=== PATIENT | male | born 1940 | race Caucasian/White ===

== ENCOUNTER → 2018-08-16 | Day surgery (SDC) | payer OTHER ==
[2018-08-11 11:57] LABS: Calcium 8.8 mg/dL (8.5-10.1); Potassium 4.4 mmol/L (3.5-5.1)
[2018-08-11 12:00] LABS: Bilirubin, Total 0.5 mg/dL (0.2-1.0); Total Protein 7.5 g/dL (6.4-8.2)
[2018-08-11 12:02] LABS: Urine Bacteria NONE SEEN /hpf (None Seen); Urine Blood Negative /uL (Negative); Urine Specific Gravity 1.008 (1.001-1.035); Urine WBC 5 /hpf (0 - 3)
[2018-08-11 12:06] LABS: Basophils # (auto) 0 uL; Basophils % (auto) 0.7 % (0.0-2.0); Eosinophils # (auto) 0.4 uL; Eosinophils % (auto) 5.9 % (0.0-7.0); Hematocrit 47.3 % (41.0-53.0); Hemoglobin 16.3 g/dL (13.5-17.5); Lymphocytes # (auto) 2.2 uL; Lymphocytes % (auto) 33.7 % (10.0-50.0); Mean Corpuscular Hemoglobin 31.3 pg (28.0-32.0); Mean Corpuscular Hgb Conc. 34.5 g/dL (32.0-36.0); Mean Corpuscular Volume 90.8 fL (80.0-100.0); Monocytes # (auto) 0.8 uL; Monocytes % (auto) 11.7 % (0.0-12.0); Neutrophils # (auto) 3.1 uL; Nucleated Red Blood Cells % 0.1 %; Platelet Count (auto) 272 10^3/uL (140-450); White Blood Cell 6.5 10^3/uL (4.4-10.8)
[2018-08-11 12:09] LABS: INR 0.95 (0.9-1.15); Partial Thromboplastin Time 27.6 sec (23.78-33.04); Prothrombin Time 10.2 sec (9.27-12.13)
[2018-08-11 12:41] LABS: BUN/Creatinine Ratio 17.7
[~2018-08-16] VITALS: Ht 172.7 cm; Wt 98.0 kg
[~2018-08-16] MED LIST: ACCU-CHEK COMFORT CURVE STRIP VI ONE; ALLO100T PO; AMLO5TAB13 PO; ASCO500T11 PO; ASPI81TA27 PO; B-CO1TAB8 PO; CHOL20009 PO; CYAN100088 PO; DESL5TAB29 PO; ETOMIDATE (2MG/ML) 20ML VIAL IV ONE; FLUT1SPR5; GLIP-110 PO; HYDROmorphone HCL 2 MG/ML VL IV PRN; KETOROLAC TROMETH 30 MG/ML 1ML VIAL ONE; LIDOCAINE 1% INJ PF 5ML AMP ONE; LISI-706 PO; LOVA40TA72 PO; MAGN400C3 PO; METOCLOPRAMIDE HCL 5MG/ml INJ 2ml VIAL ONE; MIDAZOLAM HCL 1MG/1ML-2 ML VIAL ONE; MORPHINE SULF(PF) 0.5MG/ML 10ML VIAL ONE; NALOXONE HCL 0.4 MG/ML VIAL IV PRN; NAPR-223 PO; OMEG100078 PO; OMEP20TA PO; ONDANSETRON HCL 4 MG/2 ML VIAL IV ONE; OYST500T29 PO; PIOG15TA38 PO; POTA8TAB2 PO; ROCURONIUM 10MG/ML 10ML VIAL IV ONE; SITA50TA28 PO; SUCCINYLCHOLINE CHLORIDE 20 MG/ML 10ML VIAL IV ONE; TEMA15CA91 PO; ceFAZolin 1GM/50ML 50 ML IV ONE; fentaNYL CITRATE 100 MCG/2 ML VL ONE; methylPREDNISolone ACETATE 80 MG/ML VL ONE
[2018-08-16] MEDS: HYDROmorphone HCL 2 MG/ML VL IV PRN ×3 (09:41→10:41)
[2018-08-16 10:31] VITALS: BP 137/83
== END | disposition home or self-care (01) ==
LOC: SUR 06:03
PROVIDERS: ATTEND Orthopaedic Surgery
DX: S83.241A Other tear of medial meniscus, current injury, right knee, initial encounter (principal); D16.21 Benign neoplasm of long bones of right lower limb; M65.861 Other synovitis and tenosynovitis, right lower leg; M17.11 Unilateral primary osteoarthritis, right knee; E11.9 Type 2 diabetes mellitus without complications; G47.30 Sleep apnea, unspecified; I10 Essential (primary) hypertension; K21.9 Gastro-esophageal reflux disease without esophagitis; M19.90 Unspecified osteoarthritis, unspecified site; F41.9 Anxiety disorder, unspecified; I25.10 Atherosclerotic heart disease of native coronary artery without angina pectoris; E66.9 Obesity, unspecified; E78.5 Hyperlipidemia, unspecified; Z88.0 Allergy status to penicillin; Z98.890 Other specified postprocedural states; Z79.899 Other long term (current) drug therapy; Z88.5 Allergy status to narcotic agent; Z88.6 Allergy status to analgesic agent; Z68.33 Body mass index [BMI] 33.0-33.9, adult; X58.XXXA Exposure to other specified factors, initial encounter; Y93.89 Activity, other specified; Y92.89 Other specified places as the place of occurrence of the external cause; Y99.8 Other external cause status
CPT/HCPCS: 27355; 29881; 36415; 80053; 81001; 82962; 85025; 85610; 85730; A6257; J0330; J0690; J1040; J1170; J1885; J2250; J2270; J2765; J3010